=== PATIENT | male | born 1965 | race Caucasian/White ===

== ENCOUNTER 2018-07-15 20:24 | Emergency (ER) | payer OTHER ==
[~2018-07-15] VITALS: Ht 167.6 cm; Wt 63.5 kg
[2018-07-15 20:47] VITALS: BP 148/91
[2018-07-15] MEDS ORDERED: HYDROCODONE/APAP 5/325MG 1 EACH TABLET ONE (21:18)
[2018-07-15] MEDS ORDERED: HYDROCODONE/APAP 5/325MG 1 EACH TABLET PO ONE (21:30)
--- NOTE | 2018-07-15 21:38 | NUR ---
PT RECEIVED DISCHARGE INSTRUCTIONS. PT VEBRALIZE UNDERSTANDING. PT INSTRUCTED NOT TO DRIVE. PT VERBALIZE UNDERSTANDING.
== END 2018-07-15 21:40 | disposition home or self-care (01) ==
LOC: ER 20:29
DX: G89.29 Other chronic pain (principal); M54.5 Low back pain; F17.210 Nicotine dependence, cigarettes, uncomplicated
CPT/HCPCS: 99282; A4606

== ENCOUNTER 2018-08-04 02:13 | Inpatient (IN) | payer OTHER ==
[~2018-08-04] VITALS: Ht 167.6 cm; Wt 64.4 kg
--- NOTE | 2018-08-04 02:15 | NUR ---
TO BED 1 BIB PARAEMDICS C/O SOB X1 WEEK. LUNG SOUNDS DEMINISHED BILATERALLY ON AUSCULTATION. PT AAOX4 NO ACUTE DISTRESS NOTED, RESP EVEN AND UNLABORED. PLACE PT ON CARDIAC MONITORING, CONTINUOUS POX, O2@2L/NC. PENDING ER MD [place].
--- NOTE | 2018-08-04 02:19 | NUR ---
ER MD AT BEDSIDE TO EVAL PT WITH ORDERS RECEIVED.
[2018-08-04] MEDS ORDERED: ALBUTEROL FS 2.5 MG/3 ML VIAL.NEB ONE ×2 (02:23→02:35)
[2018-08-04] MEDS ORDERED: PRED10TA PO (02:23)
[2018-08-04] MEDS ORDERED: LEVO750T46 PO (02:23)
[2018-08-04] MEDS ORDERED: IPRATROPIUM NEB FS 0.5 MG/2.5 ML AMPUL.NEB ONE (02:23)
[2018-08-04] MEDS ORDERED: ALBU18HF2 INH (02:24)
--- NOTE | 2018-08-04 02:25 | NUR ---
RT AT BEDSIDE TO GIVE HHN TX.
[2018-08-04] MEDS ORDERED: MORPHINE SULFATE INJ 2 MG/ML DISP.SYRIN IV ONE (02:30)
[2018-08-04] MEDS ORDERED: ONDANSETRON HCL/PF 4 MG/2 ML VIAL IVP ONE (02:30)
[2018-08-04] MEDS ORDERED: ALBUTEROL FS 2.5 MG/3 ML VIAL.NEB CONTNEB ONE (02:30)
[2018-08-04] MEDS ORDERED: IPRATROPIUM NEB FS 0.5 MG/2.5 ML AMPUL.NEB NEB ONE (02:30)
[2018-08-04] MEDS ORDERED: methylPREDNISolone SOD SUCC 125 MG/2ML VIAL IV ONE (02:30)
[2018-08-04 02:35] LABS: BASOPHILS % (AUTO) 0.3 % (0.0-2.0); EOSINOPHILS % (AUTO) 1.9 % (0.0-6.0); HEMATOCRIT 41 % (39-51); HEMOGLOBIN 14.1 g/dL (13.5-17.5); LYMPHOCYTES # (AUTO) 2.6 /CMM (0.8-4.8); LYMPHOCYTES % (AUTO) 16.6 % (20.0-44.0); MEAN CORPUSCULAR HGB CONC 34 g/dl (31.0-36.0); MEAN CORPUSCULAR VOLUME 98 fL (80-96); MONOCYTES # (AUTO) 1.2 /CMM (0.1-1.30); MONOCYTES % (AUTO) 7.9 % (2.0-12.0); NEUTROPHILS # (AUTO) 11.3 /CMM (1.8-8.9); NEUTROPHILS % (AUTO) 73.3 % (43.0-81.0); PLATELET COUNT (AUTO) 463 /CMM (150-450); RED BLOOD CELL COUNT(AUTO) 4.22 MIL/uL (4.5-6.0); WHITE BLOOD COUNT (AUTO) 15.4 K/uL (4.3-11.0)
[2018-08-04] MEDS ORDERED: MORPHINE SULFATE INJ 4 MG/ML DISP.SYRIN ONE (02:42)
[2018-08-04] MEDS ORDERED: ONDANSETRON HCL/PF 4 MG/2 ML VIAL ONE (02:42)
[2018-08-04 02:44] LABS: CALCIUM, SERUM 9.1 mg/dL (8.5-10.1); CARBON DIOXIDE 28 mmol/L (21-32); CHLORIDE 103 mmol/L (98-107); GLUCOSE 123 mg/dL (74-106); POTASSIUM 3.8 mmol/L (3.5-5.1); SODIUM SERUM 140 mmol/L (136-145); UREA NITROGEN, BLOOD 20 mg/dL (7-18)
[2018-08-04] MEDS ORDERED: methylPREDNISolone SOD SUCC 125 MG/2ML VIAL ONE (02:52)
[2018-08-04 02:56] LABS: ALANINE AMINOTRANSFERASE 19 U/L (12-78); ALBUMIN 2.9 g/dL (3.4-5.0); ALKALINE PHOSPHATASE 93 U/L (46-116); ASPARTATE AMINOTRANSFERASE 14 U/L (15-37); B-TYPE NATRIURETIC PEPTIDE 139 PG/ML (0-125); BILIRUBIN,DIRECT 0.1 mg/dL (0.0-0.2); BILIRUBIN,TOTAL 0.3 mg/dL (0.2-1.0)
--- NOTE | 2018-08-04 03:26 | NUR ---
PT ASLEEP, EASILY AROUSABLE, NO ACUTE DISTRESS NOTED, RESP EVEN AND UNLABORED. CALL LIGHT WITHIN REACH.
[2018-08-04] MEDS ORDERED: PIPERACILLIN /TAZOBACTAM 3.375 G in IV D5W 50 ML IV ONE (03:30)
[2018-08-04] MEDS ORDERED: PIPERACILLIN /TAZOBACTAM 3.375 G VIAL IV ONE (03:48)
--- NOTE | 2018-08-04 05:49 | NUR ---
PT ASLEEP, NO ACUTE DISTRESS NOTED, RESP EVEN AND UNLABORED. NO PAIN OR DISCOMFORT NOTED AT THIS TIME. CALL [facility] WITHIN REACH. PENDING HOSPITAL ADMISSION.
--- NOTE | 2018-08-04 06:04 | NUR ---
REPORT CALLED TO GROUP INSURANCE SPECIALISTDEVANG GOYAL. WILL TRANSPORT PT VIA ACLS PROTOCOL.
--- NOTE | 2018-08-04 06:22 | NUR ---
STAT U/S GUIDED THORACENTESIS ORDERED. CONSENT IS NOT SIGNED. NO COAG TESTS ARE DONE. SPOKE TO ER CHARGE NURSE STAR TO POSTPONE EXAM UNTIL PATIENT IS TRANSFERRED IN-PATIENT AND DAYSHIFT STAFF ARRIVE.
[2018-08-04] MEDS ORDERED: AZITHROMYCIN 250 MG in IV D5W 250 ML IV SCH ×2 (07:00→09:00)
[2018-08-04] MEDS ORDERED: CEFTRIAXONE 1 G in IV D5W 50 ML IV SCH (07:00)
[2018-08-04] MEDS: IPRATROPIUM NEB FS 0.5 MG/2.5 ML AMPUL.NEB NEB SCH ×3 (07:35→19:19)
[2018-08-04] MEDS: ALBUTEROL FS 2.5 MG/0.5 ML VIAL.NEB NEB SCH ×3 (07:35→19:19)
[2018-08-04 08:00] VITALS: BP 116/73
[2018-08-04] MEDS: CEFTRIAXONE 1 G in IV D5W 50 ML IV SCH (09:18)
[2018-08-04] MEDS: methylPREDNISolone SOD SUCC 40 MG/ML VIAL IV SCH ×3 (09:19→17:00)
[2018-08-04] MEDS: AZITHROMYCIN 500 MG in IV D5W 250 ML IV SCH (10:18)
[2018-08-04 12:00] VITALS: BP 118/76
[2018-08-04] MEDS: ACETAMINOPHEN W/ CODEINE#3 1 EA TABLET PO PRN ×2 (13:39→19:48)
[2018-08-04 16:00] VITALS: BP 126/76
--- NOTE | 2018-08-04 19:30 | NUR ---
RECEIVED PT IN BED AWAKE AND ALERT. RECEIVING BREATHING TX. BREATHING EVENLY. DENIED SOB. SKIN WARM AND DRY, WITH INTERMITTENT BACKACHE . S/P THORACENTESIS WITH NO COMPLICATIONS. DRESSING REMAINED C/D/I. NO BLEEDING. NO DRAINAGE. NEEDS ATTENDED. ASSISTED W/ ADLS. CALL LIGHT WITHIN REACH, WILL CONT TO MONITOR
--- NOTE | 2018-08-04 19:48 | NUR ---
tylenol #3 given as ordered per pt's request for c/o severe backache. will cont to monitor ,
[2018-08-04 20:00] VITALS: BP 135/76
[2018-08-05] VITALS: BP 115/67
[2018-08-05 00:08] VITALS: BP 115/67
[2018-08-05] MEDS: IPRATROPIUM NEB FS 0.5 MG/2.5 ML AMPUL.NEB NEB SCH ×4 (00:56→19:00)
[2018-08-05] MEDS: ALBUTEROL FS 2.5 MG/0.5 ML VIAL.NEB NEB SCH ×4 (00:57→19:00)
[2018-08-05] MEDS: ACETAMINOPHEN W/ CODEINE#3 1 EA TABLET PO PRN ×4 (02:51→22:42)
--- NOTE | 2018-08-05 02:55 | NUR ---
tylenol #3 given as ordered per pt's request for c/o severe backache. will cont to monitor ,
[2018-08-05 04:00] VITALS: BP 118/68
--- NOTE | 2018-08-05 06:22 | NUR ---
PT IN BED SLEEPING. AROUSES EASILY. BREATHING EASILY. NO SOB .. NO ACUTE EVENT DURING THE NIGHT. PAIN MANAGED BY PAIN MEDICATION. NEEDS ATTENDED. ASSISTED WITH ADLS. CALL LIGHT WITHIN REACH,. WILL CONT TO MONITOR AND WILL ENDORSE TO AM SHIFT FOR WILLIE. Addendum: 08/05/18 at 0648 by JOSELITO VILLASEÑOR RN SR ON TELE MONITOR
[2018-08-05 06:36] LABS: BASOPHILS % (AUTO) 0.2 % (0.0-2.0); EOSINOPHILS % (AUTO) 0.3 % (0.0-6.0); HEMATOCRIT 41 % (39-51); HEMOGLOBIN 13.7 g/dL (13.5-17.5); LYMPHOCYTES # (AUTO) 2.4 /CMM (0.8-4.8); LYMPHOCYTES % (AUTO) 12.8 % (20.0-44.0); MEAN CORPUSCULAR HGB CONC 34 g/dl (31.0-36.0); MEAN CORPUSCULAR VOLUME 98 fL (80-96); MONOCYTES # (AUTO) 1.7 /CMM (0.1-1.30); MONOCYTES % (AUTO) 8.6 % (2.0-12.0); NEUTROPHILS % (AUTO) 78.1 % (43.0-81.0); PLATELET COUNT (AUTO) 465 /CMM (150-450); RED BLOOD CELL COUNT(AUTO) 4.17 MIL/uL (4.5-6.0); WHITE BLOOD COUNT (AUTO) 19.2 K/uL (4.3-11.0)
[2018-08-05 06:42] LABS: CALCIUM, SERUM 8.9 mg/dL (8.5-10.1); CREATININE 0.8 mg/dL (0.6-1.3); MAGNESIUM 2.1 mg/dL (1.8-2.4); PHOSPHORUS 3.3 mg/dL (2.5-4.9); POTASSIUM 3.9 mmol/L (3.5-5.1)
[2018-08-05 06:55] LABS: THYROID STIMULATING HORMONE 0.949 uIU/mL (0.358-3.74)
--- NOTE | 2018-08-05 07:41 | NUR ---
MACHINE FANCY STITCHER OPENING NOTE RECEIVED PATIENT IN BED. ALERT ORIENTED X4. ON 2L O2 VIA NC, TOLERATING WELL. IN NO APPARENT DISTRESS OR DISCOMFORT AT THIS TIME. DENIES PAIN AND SOB. PATIENT IS ON TELE MONITOR WITH SINUS RHYTHM, LEFT AC 20G IVC SL, PATENT AND INTACT. ABLE TO COMMUNICATE NEEDS. ABLE TO AMBULATE INDEPENDENTLY. PATIENT KEPT CLEAN AND COMFORTABLE. ALL NEEDS ATTENDED, SAFETY MEASURES IN PLACE, BED IN LOW LOCKED POSITION, SIDE RAILS UP X2, CALL LIGHT WITHIN EASY REACH. WILL CONTINUE TO MONITOR.
[2018-08-05 08:00] VITALS: BP 115/70
[2018-08-05] MEDS: methylPREDNISolone SOD SUCC 40 MG/ML VIAL IV SCH ×3 (08:27→16:25)
[2018-08-05] MEDS: CEFTRIAXONE 1 G in IV D5W 50 ML IV SCH (08:28)
[2018-08-05] MEDS ORDERED: GABA600T12 PO (08:48)
[2018-08-05] MEDS: AZITHROMYCIN 500 MG in IV D5W 250 ML IV SCH (09:09)
[2018-08-05] MEDS: GABAPENTIN 300 MG CAPSULE PO SCH ×2 (09:10→16:25)
[2018-08-05 16:00] VITALS: BP 117/75
[2018-08-05] MEDS: LACTOBACILLUS RHAMNOSUS GG 1 EACH CAP.SPRINK PO SCH (16:25)
--- NOTE | 2018-08-05 18:50 | NUR ---
MS RN CLOSING NOTE PATIENT IN BED. ALERT ORIENTED X4. ON 2L O2 VIA NC, TOLERATING WELL. IN NO APPARENT DISTRESS OR DISCOMFORT AT THIS TIME. DENIES PAIN AND SOB. EXERTIONAL SOB ONLY. LEFT AC 20G IVC SL, PATENT AND INTACT. ABLE TO COMMUNICATE NEEDS. ABLE TO AMBULATE INDEPENDENTLY. PATIENT KEPT CLEAN AND COMFORTABLE. ALL NEEDS ATTENDED, SAFETY MEASURES IN PLACE, BED IN LOW LOCKED POSITION, SIDE RAILS UP X2, CALL LIGHT WITHIN EASY REACH. WILL ENDORSE TO PM NURSE FOR WILLIE.
--- NOTE | 2018-08-05 19:41 | NUR ---
RN MS OPENING NOTE RECEIVED PT IN BED, SLEEPING, EASILY AROUSED TO NAME CALL, BREATHING EVEN AND UNLABORED ON 2L. IN NO APPARENT PAIN OR DISCOMFORT. IV ACCESS ON THE LAC 20G PATENT AND FLUSHING. BED IN LOWEST LOCKED POSITION, CALL LIGHT WITHIN REACH AT ALL TIMES, WILL CONTINUE TO MONITOR
[2018-08-05 20:00] VITALS: BP 130/81
[2018-08-06] MEDS: IPRATROPIUM NEB FS 0.5 MG/2.5 ML AMPUL.NEB NEB SCH ×4 (02:08→20:43)
[2018-08-06] MEDS: ALBUTEROL FS 2.5 MG/0.5 ML VIAL.NEB NEB SCH ×4 (02:08→20:43)
[2018-08-06] MEDS: ACETAMINOPHEN W/ CODEINE#3 1 EA TABLET PO PRN (05:22)
--- NOTE | 2018-08-06 06:28 | NUR ---
RN MS CLOSING NOTES PT IN BED, AWAKE ALERT ORIENTED X4, BREATHING EVEN AND UNLABORED ON 2L. PT REPORTS BREATHING EASIER THAN THE LAST FEW DAYS. IN NO APPARENT PAIN OR DISCOMFORT. IV ACCESS ON THE LAC 20G PATENT AND FLUSHING. BED IN LOWEST LOCKED POSITION, CALL LIGHT WITHIN REACH AT ALL TIMES, WILL ENDORSE TO DAY NURSE FOR WILLIE
[2018-08-06 06:29] LABS: BASOPHILS % (AUTO) 0.1 % (0.0-2.0); EOSINOPHILS % (AUTO) 0.1 % (0.0-6.0); HEMATOCRIT 41 % (39-51); HEMOGLOBIN 14.1 g/dL (13.5-17.5); LYMPHOCYTES # (AUTO) 2.5 /CMM (0.8-4.8); LYMPHOCYTES % (AUTO) 13.8 % (20.0-44.0); MEAN CORPUSCULAR HGB CONC 34 g/dl (31.0-36.0); MEAN CORPUSCULAR VOLUME 97 fL (80-96); MONOCYTES # (AUTO) 1.5 /CMM (0.1-1.30); MONOCYTES % (AUTO) 8.1 % (2.0-12.0); NEUTROPHILS % (AUTO) 77.9 % (43.0-81.0); PLATELET COUNT (AUTO) 498 /CMM (150-450); RED BLOOD CELL COUNT(AUTO) 4.27 MIL/uL (4.5-6.0)
--- NOTE | 2018-08-06 07:32 | NUR ---
MS RN OPENING NOTE RECEIVED PT IN BED, RESTING WITH EYES CLOSED. NO ACUTE DISTRESS NOTED AT THIS TIME. BREATHING IS EVEN AND UNLABORED ON ROOM AIR. LEFT AC #20G IV IS SALINE LOCKED WITHOUT REDNESS OR SWELLING. BED IS LOCKED AND IN LOWEST POSITION, SIDE RAILS UP X2, CALL LIGHT AND POSSESSIONS WITHIN REACH.
[2018-08-06 08:00] VITALS: BP 121/69
[2018-08-06] MEDS: methylPREDNISolone SOD SUCC 40 MG/ML VIAL IV SCH ×2 (08:25→17:00)
[2018-08-06] MEDS: GABAPENTIN 300 MG CAPSULE PO SCH ×2 (08:25→17:00)
[2018-08-06] MEDS: LACTOBACILLUS RHAMNOSUS GG 1 EACH CAP.SPRINK PO SCH ×2 (08:25→17:00)
[2018-08-06] MEDS: CEFTRIAXONE 1 G in IV D5W 50 ML IV SCH (08:25)
[2018-08-06] MEDS: HYDROCODONE/APAP 10/325MG 1 EA TABLET PO PRN ×3 (09:18→21:25)
[2018-08-06] MEDS: AZITHROMYCIN 500 MG in IV D5W 250 ML IV SCH (09:18)
--- NOTE | 2018-08-06 18:42 | NUR ---
MS RN CLOSING NOTE PT IN BED, RESTING WITH EYES CLOSED AND EASILY AROUSABLE. PT IS A/OX4 DENIES CHEST PAIN, SOB, N/V. BREATHING IS EVEN AND UNLABORED ON 2L NC. NO ACUTE DISTRESS NOTED AT THIS TIME. LEFT AC #20G IV IS SALINE LOCKED WITHOUT REDNESS OR SWELLING. ADLS PROVIDED. BED IS LOCKED AND IN LOWEST POSITION, SIDE RAILS UP X2, CALL LIGHT AND POSSESSIONS WITHIN REACH. WILL ENDORSE TO CAPPER MACHINE OPERATOR NURSE FOR CONTINUITY OF CARE.
--- NOTE | 2018-08-06 19:40 | NUR ---
RECEIVED PT IN BED AWAKE AND ALERT.. BREATHING EVENLY. WITH ON AND OFF COUGH. DENIED SOB. SKIN WARM AND DRY, WITH INTERMITTENT BACKACHE . S/P THORACENTESIS WITH NO COMPLICATIONS. . NEEDS ATTENDED. ASSISTED W/ ADLS. CALL LIGHT WITHIN REACH, WILL CONT TO MONITOR
[2018-08-06 20:00] VITALS: BP 113/68
--- NOTE | 2018-08-06 21:25 | NUR ---
NORCO GIVEN ORDERED FOR C/O BACKACHE. WILL CONT TO MONITOR,
[2018-08-07] MEDS: ALBUTEROL FS 2.5 MG/0.5 ML VIAL.NEB NEB SCH ×3 (01:30→13:30)
[2018-08-07] MEDS: IPRATROPIUM NEB FS 0.5 MG/2.5 ML AMPUL.NEB NEB SCH ×3 (01:30→13:30)
[2018-08-07] MEDS: HYDROCODONE/APAP 10/325MG 1 EA TABLET PO PRN ×2 (03:26→09:53)
--- NOTE | 2018-08-07 03:26 | NUR ---
NORCO GIVEN ORDERED FOR C/O BACKACHE. WILL CONT TO MONITOR,
--- NOTE | 2018-08-07 04:27 | NUR ---
PT SLEEPING. WITH NAD. NO C/O PAIN OR DISCOMFORT. WILL CONT TO MONITOR ,
--- NOTE | 2018-08-07 07:18 | NUR ---
PT IN BED RESTING COMFORTABLY. BREATHING EVENLY. NO COUGH. PAIN MEDICATIONS GIVEN ORDERED PER PT'S REQUEST. NEEDS ATTENDED.. BED LOW LOCKED. CALL LIGHT WITHIN REACH. REPORT GIVEN TO DEVANG PANDEY. FOR WILLIE.
[2018-08-07 08:00] VITALS: BP 125/80
[2018-08-07] MEDS: GABAPENTIN 300 MG CAPSULE PO SCH (08:20)
[2018-08-07] MEDS: LACTOBACILLUS RHAMNOSUS GG 1 EACH CAP.SPRINK PO SCH (08:20)
[2018-08-07] MEDS: methylPREDNISolone SOD SUCC 40 MG/ML VIAL IV SCH (08:20)
[2018-08-07] MEDS: CEFTRIAXONE 1 G in IV D5W 50 ML IV SCH (08:20)
[2018-08-07] MEDS: AZITHROMYCIN 500 MG in IV D5W 250 ML IV SCH (09:00)
--- NOTE | 2018-08-07 13:05 | NUR ---
MS RN NOTE PER ANDREINA DESIR NP HOLD DISCHARGE FOR NOW
--- NOTE | 2018-08-07 14:34 | NUR ---
MS HOLLOW TILE PARTITION ERECTOR NOTE PT DISCHARGE HOME VIA TAXI IN MEDICALLY STABLE CONDITION. PT IS A/OX4, DENIES CHEST PAIN, SOB, N/V. BREATHING IS EVEN AND UNLABORED ON ROOM AIR. LEFT AC PERIPHERAL IV REMOVED WITH CATHETER TIP INTACT. DISCHARGE PAPERWORK AND EDUCATION PROVIDED PER PROTOCOL. DISCUSSED PRESCRIPTIONS GIVEN, AND OF PROVIDER INSTRUCTIONS TO FOLLOW UP WITH PRIMARY CARE PROVIDER WITHIN 1 WEEK. ANDREINA DESIR NP WENT TO THE BEDSIDE TO DISCUSS PRELIMINARY PLEURAL PATHOLOGY RESULTS, COPY PROVIDED. PROVIDED DIRECTIONS AND PHONE NUMBER OF HOSPITAL AND [facility] UN[facility] FOR PT TO CALL AND FOLLOW UP ON RESULTS REQUESTED BY ANDREINA. PT VERBALIZED UNDERSTANDING AND AGREEMENT. PER [place] IN , PT INSURANCE DOES NOT COVER FOLLOWING UP WITH ANDREINA IN [facility], INFORMED PT AND CARD WITH ANDREINA DESIR NP INFORMATION PROVIDED REQUESTED. THE NURSE TREATER HELPER ACCOMPANIED THE PT TO THE MAIN LOBBY WITHOUT INCIDENT.
== END 2018-08-07 14:34 | disposition home or self-care (01) | DRG 139 ==
LOC: ER 02:15 → TELE 06:22 → MED 08-05 09:48 → MEDSG2 08-06 16:39
PROVIDERS: ADMIT Nurse Practitioner Acute Care; ATTEND Nurse Practitioner Acute Care
PROC: 0W993ZZ Drainage of Right Pleural Cavity, Percutaneous Approach (ICD-10-PCS; principal; 2018-08-04)
DX: J15.9 Unspecified bacterial pneumonia (principal); J96.01 Acute respiratory failure with hypoxia; I31.3 Pericardial effusion (noninflammatory); J91.8 Pleural effusion in other conditions classified elsewhere; J44.0 Chronic obstructive pulmonary disease with (acute) lower respiratory infection; J44.1 Chronic obstructive pulmonary disease with (acute) exacerbation; F17.210 Nicotine dependence, cigarettes, uncomplicated; G89.29 Other chronic pain; J98.11 Atelectasis; K40.90 Unilateral inguinal hernia, without obstruction or gangrene, not specified as recurrent; T38.0X5A Adverse effect of glucocorticoids and synthetic analogues, initial encounter; D72.829 Elevated white blood cell count, unspecified; R39.2 Extrarenal uremia
CPT/HCPCS: 36415; 71045-TC; 71250-TC; 76942-TC; 80048-TC; 80061-TC; 80076-TC; 82040-TC; 83735-TC; 83880; 84100-TC; 84443-TC; 84484-TC; 85025-TC; 85610-TC; 87070-TC; 87075-TC; 87081-TC; 87102-TC; 87116; 87206; 88305-TC; 88312-TC; 88342; 89051-TC; 93307-TC; 94799-TC; G0378; J0456; J0696; J2270; J2405; J2543; J2920; J2930; J7060

== ENCOUNTER 2018-08-11 13:06 | Outpatient (CLI) | payer OTHER ==
[~2018-08-11 13:06] MED LIST: ALBU18HF2 INH; GABA600T12 PO; LEVO750T46 PO; PRED10TA PO
[2018-08-11 13:26] VITALS: BP 124/78
== END 2018-08-11 23:59 | disposition home or self-care (01) ==
LOC: MSC 13:06
PROVIDERS: ATTEND Nurse Practitioner Acute Care
DX: C78.02 Secondary malignant neoplasm of left lung (principal); C80.1 Malignant (primary) neoplasm, unspecified; M54.9 Dorsalgia, unspecified; F17.210 Nicotine dependence, cigarettes, uncomplicated; K40.90 Unilateral inguinal hernia, without obstruction or gangrene, not specified as recurrent; J44.9 Chronic obstructive pulmonary disease, unspecified